=== PATIENT | male | born 1955 | race Caucasian/White ===

== ENCOUNTER → 2017-10-17 | Outpatient (CLI) | payer BC ==
--- NOTE | 2017-10-17 17:34 | CONS ---
CONSULTATION DATE OF SERVICE: 10/17/2017 62-year-old gentleman who has been evaluated in the [facility] for possible obstructive sleep apnea-hypopnea syndrome. HISTORY OF PRESENT ILLNESS/SLEEP-WAKE EVALUATION: Patient's usual sleep schedule on weekdays from 10 or 11 p.m. until 5:50 a.m. and on weekends from around 11:00 p.m. until 8 or 9:00 a.m. Usually no problems with the falling asleep although he has TV set in bedroom. He sleeps on the side position with snoring and patient wakes up from sleep 3 times with nocturia. In the morning patient wakes up tired, falling asleep during the day, worry about his sleep. [place] Sleepiness Scale significantly increased to 13. He may take naps once a day after work and on Saturday up to 3 times per day. PAST MEDICAL HISTORY: Positive for hyperlipidemia. History of obesity. Patient is trying to lose weight. For the last year he lost about 80 pounds. PAST SURGICAL HISTORY: Hernia repair, left foot fusion surgery. REVIEW OF SYSTEMS: Multiple awakenings from sleep, sleepiness during the day. MEDICATIONS: Atorvastatin, Contrave, Milk Thistle, alpha lipoic acid, chlorophyl oxygen. SOCIAL HISTORY: Positive for smoking about 1 pack a day for 10 years, quit 35 years ago. Alcohol consumption none. FAMILY HISTORY: Hypertension, angina, heart problems, hyperlipidemia, arthritis, sinus problems, sleep apnea, snoring, tuberculosis, pneumonia, cancer, headaches, narcolepsy, liver problems, diabetes, thyroid problems, anemia. PHYSICAL EXAM: GENERAL 62-year-old gentleman without distress. VITAL SIGNS BP 131/86, HR 85, RR 16, height 5 feet 7, weight 320.8, body mass index 50.1, temperature 98.1, oxygen saturation on room air 93%. HEENT PERRLA, EOMI, evaluation of oropharynx showed extremely low position of soft palate. Slight restriction of nasal breathing. Neck 18 inches in circumference. NECK Supple, no JVD. Thyroid is not palpable. LUNGS Clear to percussion and to auscultation. Good air exchange. No wheezing or rhonchi. HEART S1, S2 regular. No murmurs, gallops, or rubs. ABDOMEN Obese. Soft and nontender. Bowel sounds are present. No organomegaly appreciated. EXTREMITIES Up to 1+ ankle edema. No clubbing or cyanosis. GREENHOUSE TECHNICIAN Awake, alert, and oriented X3. Cranial nerves 2 to 7 intact. There is no fasciculation or atrophy. noted. No focal deficits observed. IMPRESSION: 1. Snoring, multiple awakenings from sleep, extremely low position of soft palate, excessive daytime sleepiness. [place] Sleepiness Scale increased to 13. Wide neck 18 inches in circumference. Obstructive sleep apnea-hypopnea syndrome. 2. Morbid obesity, BMI 50.1. 3. Hyperlipidemia. 4. Status post hernia repair. 5. Status post left foot fusion surgery. PLAN: 1. Polysomnography for evaluation of patient's breathing during sleep. 2. CPAP/BiPAP titration if sleep study confirms obstructive sleep apnea-hypopnea syndrome. 3. Preferable position during sleep on the side. 4. No driving if patient feels any sleepiness. 5. I will see patient for follow up visit to explain results of testing and following plan. Thank you very much for referring this patient for consultation. Sincerely, Tolu Clark MD, PhD, FAASM Diplomat of [place] [employer] Specialties [place] [employer] Logging Superintendent of [facility] MMODL / IJN: [id number] /
== END | disposition home or self-care (01) ==
LOC: SLEEP 11:38
PROVIDERS: ATTEND Internal Medicine
DX: G47.33 Obstructive sleep apnea (adult) (pediatric) (principal); E78.5 Hyperlipidemia, unspecified; E66.01 Morbid (severe) obesity due to excess calories; Z68.43 Body mass index [BMI] 50.0-59.9, adult; Z87.891 Personal history of nicotine dependence; Z79.899 Other long term (current) drug therapy; Z98.890 Other specified postprocedural states
CPT/HCPCS: 99211

== ENCOUNTER → 2018-02-12 | Outpatient (CLI) | payer BC ==
--- NOTE | 2018-02-12 17:51 | PN ---
PROGRESS NOTE DATE OF SERVICE: 02/12/2018 62-year-old gentleman who has been followed in Sleep Center for treatment of obstructive sleep apnea-hypopnea syndrome. Recently patient had a home sleep apnea test which showed severe sleep apnea and after that patient had CPAP titration and subsequently received his CPAP unit. Today is his first visit with the new CPAP unit. He is able to use equipment every night for the whole night without significant problems related to the mask fitting, pressure or humidification. He sleeps better with the machine and he feels better during the day. [place] Sleepiness Scale is only 2. I checked his CPAP unit. CPAP pressure is 12 cm of water. Usage is 100% of the time more than 4 hours, average 6.8 hours. Leak 32 L/minute which is borderline. Apnea- hypopnea index only 1.4, which is absolutely normal. MEDICATIONS: Atorvastatin, contrast, Valproic acid and some other addendum to the diet. PHYSICAL EXAM: Patient in no distress. BP 152/90, HR 93, RR 18, weight 318, temp 99.0. Oropharynx moderately low position of soft palate. ABDOMEN: Obese. Neck Supple, no JVD. Thyroid is not palpable. LUNGS Clear to percussion and to auscultation. Good air exchange. No wheezing or rhonchi. HEART S1, S2 regular. No murmurs, gallops, or rubs. ABDOMEN: Obese. Soft and nontender. Bowel sounds are present. No organomegaly appreciated. EXTREMITIES No clubbing or cyanosis. OFFICE ADMINISTRATION Awake, alert, and oriented X3. Cranial nerves 2 to 7 intact. There is no fasciculation or atrophy. noted. No focal deficits observed. IMPRESSION: 1. Severe obstructive sleep apnea-hypopnea syndrome; apnea-hypopnea index 75.7 with oxygen desaturation to 66% on control with CPAP at 12 cm of water. Patient demonstrated great compliance with CPAP, benefitting from treatment. 2. Obesity. 3. Hyperlipidemia. 4. Status post hernia repair. 5. Status post left foot fusion surgery. PLAN: 1. Patient will continue to use CPAP equipment every night for the whole night. 2. Losing weight. 3. Sleep hygiene with regular time in bed for at least 8 hours. 4. No driving if feeling sleepiness. 5. He will maintain all necessary prescription for CPAP supplies. Thank you very much for allowing me to participate in management of your patient. Sincerely, Tolu Clark MD, PhD, FAASM Diplomat of [place] [employer] [place] [employer] Gyroscopic Instrument Tester of [facility] MMBENJAMIN / ARI: [id number] /
== END | disposition home or self-care (01) ==
LOC: SLEEP 14:30
PROVIDERS: ATTEND Internal Medicine
DX: G47.33 Obstructive sleep apnea (adult) (pediatric) (principal); E66.9 Obesity, unspecified; E78.5 Hyperlipidemia, unspecified; Z98.890 Other specified postprocedural states; Z79.899 Other long term (current) drug therapy; Z99.89 Dependence on other enabling machines and devices

== ENCOUNTER → 2018-03-07 | Outpatient (CLI) | payer BC ==
--- NOTE | 2018-03-07 16:05 | US ---
EXAMINATION TYPE: US carotid duplex BILAT DATE OF EXAM: 03/07/2018 COMPARISON: NONE CLINICAL HISTORY: R09.89 symptoms and signs involving the circulato. EXAM MEASUREMENTS: RIGHT: Peak Systolic Velocity (PSV) cm/sec ----- Right CCA: 95.2 ----- Right ICA: 106.2 ----- Right ECA: 119.8 ICA/CCA ratio: 1.1 RIGHT: End Diastole cm/sec ----- Right CCA: 20.4 ----- Right ICA: 32.5 ----- Right ECA: 16.3 LEFT: Peak Systolic Velocity (PSV) cm/sec ----- Left CCA: 102.6 ----- Left ICA: 143.1 ----- Left ECA: 135.2 ICA/CCA ratio: 1.4 LEFT: End Diastole cm/sec ----- Left CCA: 24.6 ----- Left ICA: 31.7 ----- Left ECA: 17.0 VERTEBRALS (direction of flow): Right Vertebral: Antegrade Left Vertebral: Antegrade Rhythm: Normal No significant stenosis seen. Plaque at bulbs bilaterally. Mildly elevated velocities on left. Left I CA is tortuous. IMPRESSION: 1. Stenosis of 50-69% within the left internal carotid artery and external carotid artery. This could be further assessed with CTA neck. 2. No hemodynamically significant stenosis within the right internal carotid artery, common carotid a rtery or external carotid artery. Criteria for Assigning % of Stenosis / Diameter reduction (Estimation based on the indirect measurements of the internal carotid artery velocities (ICA PSV). 1. Normal (no stenosis)=ICA PSV < 125 cm/s: ratio < 2.0: ICA EDV<40 cm/s. 2. Less than 50% stenosis=ICA PSV < 125 cm/s: ratio < 2.0: ICA EDV<40 cm/s. 3. 50 to 69% stenosis=ICA PSV of 125 to 230 cm/s: ration 2.0 ? 4.0: ICA EDV 40-100 cm/s. 4. Greater than 70% stenosis to near occlusion= ICA PSV > 230 cm/s: ratio > 4.0: ICA EDV > 100 cm/s. 5. Near occlusion= ICA PSV velocities may be low or undetectable: variable ratio and ICA EDV. 6. Total occlusion=unable to detect flow.
--- NOTE | 2018-03-08 07:10 | ECHOF ---
Referral Reason:R09.89 symptoms and signs involving the circulato MEASUREMENTS -------- HEIGHT: 170.2 cm WEIGHT: 104.3 kg BP: 162/80 RVIDd: 3.4 cm (< 3.3) IVSd: 1.4 cm (0.6 - 1.1) LVIDd: 4.3 cm (3.9 - 5.3) LVPWd: 1.5 cm (0.6 - 1.1) IVSs: 1.9 cm LVIDs: 2.8 cm LVPWs: 2.2 cm LA Diam: 4.1 cm (2.7 - 3.8) LAESV Index (A-L): 30.05 ml/m Ao Diam: 3.9 cm (2.0 - 3.7) AV Cusp: 2.4 cm (1.5 - 2.6) MV EXCURSION: 14.382 mm (> 18.000) MV EF SLOPE: 30 mm/s (70 - 150) EPSS: 1.4 cm MV E Hamzah: 0.99 m/s MV DecT: 197 ms MV A Hamzah: 0.87 m/s MV E/A Ratio: 1.14 AV maxP.30 mmHg AV meanP.59 mmHg RAP: 5.00 mmHg RVSP: 19.00 mmHg FINDINGS -------- Sinus rhythm. This was a technically adequate study. The left ventricular size is normal. There is moderate concentric left ventricular hypertrophy. O verall left ventricular systolic function is normal with, an EF between 60 - 65 %. The right ventricle is mildly enlarged. LA is midly dilated 29-33ml/m2. The right atrium is normal in size. Aortic valve is trileaflet and is mildly thickened. There is mild aortic stenosis present. Peak/m dustin gradient across the Aortic Valve is 17.30mmHg / 8.59mmHg. The mitral valve is normal. Mild tricuspid regurgitation present. Right ventricular systolic pressure is normal at < 35 mmHg. The pulmonic valve was not well visualized. The aortic root is dilated measuring 3.9cm. Normal inferior vena cava with normal inspiratory collapse consistent with estimated right atrial pre ssure of 5 mmHg. The inferior vena cava is mildly dilated. There is no pericardial effusion. CONCLUSIONS -------- 1. Sinus rhythm. 2. This was a technically adequate study. 3. The left ventricular size is normal. 4. There is moderate concentric left ventricular hypertrophy. 5. Overall left ventricular systolic function is normal with, an EF between 60 - 65 %. 6. The right ventricle is mildly enlarged. 7. LA is midly dilated 29-33ml/m2. 8. The right atrium is normal in size. 9. Aortic valve is trileaflet and is mildly thickened. 10. There is mild aortic stenosis present. 11. Peak/mean gradient across the Aortic Valve is 17.30mmHg / 8.59mmHg. 12. The mitral valve is normal. 13. Mild tricuspid regurgitation present. 14. Right ventricular systolic pressure is normal at < 35 mmHg. 15. The pulmonic valve was not well visualized. 16. The aortic root is dilated measuring 3.9cm. 17. Normal inferior vena cava with normal inspiratory collapse consistent with estimated right atrial pressure of 5 mmHg. 18. The inferior vena cava is mildly dilated. 19. There is no pericardial effusion. SYNTHETIC CLOTH BINDING CUTTER: Samira Alvarenga RDCS
== END | disposition home or self-care (01) ==
LOC: RADECHMAIN 14:56
PROVIDERS: ATTEND Family Medicine
DX: I65.22 Occlusion and stenosis of left carotid artery (principal); I08.2 Rheumatic disorders of both aortic and tricuspid valves
CPT/HCPCS: 93306; 93880

== ENCOUNTER → 2022-08-07 | Outpatient (CLI) | payer BC ==
[~2022-08-07] MED LIST: REGADENOSON 0.4 MG/5 ML SYRINGE IV ONE
--- NOTE | 2022-08-07 12:50 | CA ---
Lexiscan Nuclear Stress Test Report Name: Juan Francisco Warren Exam Date: 08/07/2022 10:28 Exam Location: [facility] Ht (in): 66 Wt (lb): 350 BSA: 2.54 Ordering Phys: Hakan Felix MD Referring Phys: VIN FELIX,, Technologist: Yonis Domingo Age: 67 Gender: M : 1955 Procedure CPT: Indications: I45.10 ICD-10 Codes: Patient History: Medications: LIPITOR Meds past 24 hrs: Pretest Chest Pain: STRESS TEST Lexiscan Protocol Exercise Duration (min:sec): 02:[address] Depressions (mm): Angina Score: Pitts Score: Resting HR (bpm): 75 Peak HR (bpm): 95 Resting BP (mmHg): 138 / 76 Peak BP (mmHg): 141 / 75 MPHR: 154 Target HR: 131 % MPHR: 62 METS: 1.0 Total Dose: Peak Dose: Atropine: Double Product: 23976 BP Response: Stress Termination: PROTOCOL COMPLETE Stress Symptoms: NO SYMPTOMS Stress Summary: ECG ANALYSIS Resting ECG: Sinus rhythm. Incomplete right bundle branch block. No arrhythmias. Stress ECG: No ECG changes from baseline with Lexiscan infusion. CONCLUSIONS No ECG evidence of ischemia with Lexiscan infusion. Nuclear test results to follow. Dr. Yasemin Adams MD (Electronically Signed) Final Date: 07 August 2022 12:49
--- NOTE | 2022-08-07 13:52 | NM ---
EXAMINATION TYPE: NM stress lexiscan cardiolite DATE OF EXAM: 08/07/2022 COMPARISON: NONE CLINICAL INDICATION: Male, 67 years old with history of I45.10; TECHNIQUE: After the intravenous administration of 10.7 mCi Tc 99m Sestamibi - Cardiolite resting SP ECT images acquired 70 minutes post injection. The patient received 0.4mg Lexiscan, 25.3 mCi Tc 99m Sestamibi - Stress images obtained [address] injection FINDINGS: Review of stress and rest SPECT images demonstrates a moderate-sized fixed defect along the lateral a pical wall. Additional small fixed defect mid anteroseptal wall. No distinct reversibility is seen. Gated analysis shows normal wall motion with an estimated left ventricular ejection fraction of 59 %. However, TID there is increased at 1.38. IMPRESSION: 1. Increased TID at 1.38. This can indicate a positive exam with multivessel/global inducible ischemi a. Further workup and correlation recommended. 2. Otherwise, the perfusion images show areas of fixed defects that could represent attenuation artif act or old infarcts.
== END | disposition home or self-care (01) ==
LOC: RADNMMAIN 08:22
PROVIDERS: ATTEND Family Medicine
DX: I45.10 Unspecified right bundle-branch block (principal); R07.9 Chest pain, unspecified
CPT/HCPCS: 93017; 78452; A9500

== ENCOUNTER 2022-09-10 05:42 | Day surgery (SDC) | payer BC ==
[2022-09-10] MEDS ORDERED: ASPIRIN 325 MG TAB PO STA (05:54)
[2022-09-10] MEDS ORDERED: SODIUM CHLORIDE 0.9% 1,000 ML in EMPTY BAG 1 BAG IV SCH (05:54)
[2022-09-10] MEDS ORDERED: ALPRAZolam 0.5 MG TAB PO PRN (05:54)
[2022-09-10] MEDS ORDERED: ALPRAZolam 0.25 MG TAB PO PRN (05:54)
[2022-09-10] MEDS ORDERED: NITROGLYCERIN SL TABS 0.4 MG TAB SUBLINGUAL PRN (05:54)
[2022-09-10] MEDS ORDERED: ASPIRIN 81 MG ONE (06:31)
[2022-09-10 06:33] VITALS: RESP 18; TEMP 98
[2022-09-10 06:50] LABS: Basophils # (A) 0.1 k/uL (0-0.2); Basophils % (A) 1 %; Eosinophils # (A) 0.3 k/uL (0-0.7); Eosinophils % (A) 3 %; HCT 47.3 % (39.0-53.0); HGB 15.2 gm/dL (13.0-17.5); Lymphocytes # (A) 3.1 k/uL (1.0-4.8); Lymphocytes % (A) 38 %; MCH 28.4 pg (25.0-35.0); MCHC 32.1 g/dL (31.0-37.0); MCV 88.4 fL (80.0-100.0); Mean Platelet Volume 8.1; Monocytes # (A) 0.6 k/uL (0-1.0); Monocytes % (A) 7 %; Neutrophils % (A) 49 %; Platelet Count 248 k/uL (150-450); RBC 5.36 m/uL (4.30-5.90); RDW 14.3 % (11.5-15.5); WBC 8.2 k/uL (3.8-10.6)
[2022-09-10 06:57] LABS: African American GFR (CKD) >90 (>60 ml/min/1.73 sqM); Anion Gap 6 mmol/L; Blood Urea Nitrogen 14 mg/dL (9-20); Calcium 8.9 mg/dL (8.4-10.2); Carbon Dioxide 30 mmol/L (22-30); Chloride 102 mmol/L (98-107); Glucose 99 mg/dL (74-99); Non-African American GFR(CKD) >90 (>60 ml/min/1.73 sqM); Potassium 4.3 mmol/L (3.5-5.1); Sodium 138 mmol/L (137-145)
[2022-09-10] MEDS ORDERED: LIDOCAINE 1% INJ 10MG/ML (5 ML VIAL-PF) SQ ONE (07:29)
[2022-09-10] MEDS ORDERED: MIDAZOLAM 2 MG/2 ML VIAL IVP ONE (07:30)
[2022-09-10] MEDS ORDERED: VERAPAMIL SYRINGE (5 MG/10 ML) INTRAARTER ONE (07:31)
[2022-09-10] MEDS ORDERED: HEPARIN SODIUM 1,000 UN/ML (10ML VL) IV ONE ×2 (07:31→07:36)
[2022-09-10] MEDS ORDERED: IOPAMIDOL-370 100ML BTL INJ ONE (07:53)
--- NOTE | 2022-09-10 10:00 | CC ---
CARDIAC CATHETERIZATION REPORT INDICATION: Abnormal stress test. PROCEDURE NOTE: After obtaining informed consent, left heart catheterization and coronary angiogram were performed via the right radial artery using standard Joan catheters. Subselective images of the right coronary artery were obtained using a Edith catheter. We tried size 3.5 and size 4 right Joan catheters; however, because of the tortuosity within the subclavian, we were not able to position the catheter in the right coronary artery. Right radial artery access was obtained using Seldinger technique. A 6-Pashto sheath was placed. Catheters and wires were floated into the ascending aorta under fluoroscopic guidance. The patient tolerated the procedure well without any obvious immediate complications. Sedation time was 31 minutes. The patient received verapamil and heparin per protocol. A TR band was used for hemostasis. FINDINGS: 1. Hemodynamics: Left ventricular end-diastolic pressure is 18 mm. There is no significant gradient across the aortic valve. 2. Left ventriculogram: Left ventriculogram is not performed. 3. Angiographic data: a.Right coronary artery: Right coronary artery is a dominant vessel, shows mild nonobstructive disease in the distal RCA, this was sub-selectively engaged even after multiple attempts. b.Left main coronary artery is a normal-sized vessel and is free of stenosis. Divides into left anterior descending coronary artery and circumflex coronary artery. LAD and its branches, circumflex coronary artery and its branches are free of significant stenosis. CONCLUSIONS: 1. Mild nonobstructive disease involving distal RCA. 2. False-positive nuclear scan. PLAN: The patient will be treated with aspirin and Lipitor and risk factor modification. He can proceed with his surgery within a week from now. MMODL / IJN: [id number] /
--- NOTE | 2022-09-10 10:09 | LTR ---
Dear Isma: I performed a cardiac catheterization on Juan Francisco Warren. A detailed catheterization note is enclosed for your records. In brief, cardiac cath did not reveal significant obstructive CAD with stress test is a false-positive stress test. If management is going to be in the form of risk factor modification, he can proceed with the surgery that he was planning to with Dr. Mcknight. Thank you for giving me the privilege to participate in the [facility]. MMINDIGOL / IJN: [id number] /
[2022-09-10 12:05] VITALS: BP 130/59; PULSE 64
== END 2022-09-10 12:05 | disposition home or self-care (01) ==
LOC: CATHCVL 05:42
PROVIDERS: ATTEND Internal Medicine Cardiovascular Disease
DX: R94.39 Abnormal result of other cardiovascular function study (principal); E78.5 Hyperlipidemia, unspecified; Z82.49 Family history of ischemic heart disease and other diseases of the circulatory system; Z87.891 Personal history of nicotine dependence; Z79.899 Other long term (current) drug therapy
CPT/HCPCS: 93458; 80048; 85025; C1769 ×2; C1894; J2250; J2001; J1644; Q9967